=== PATIENT | male | born 1950 | race Caucasian/White ===

== ENCOUNTER → 2016-06-09 | Outpatient (REF) | payer MEDICARE, OTHER | END | disposition home or self-care (01) | LOC: M LAB REF 13:07 | DX: M54.5 Low back pain (principal); G89.29 Other chronic pain ==

== ENCOUNTER 2018-12-12 16:20 | Emergency (ER) | payer MEDICARE, OTHER ==
[~2018-12-12] VITALS: Ht 182.9 cm; Wt 89.8 kg
[2018-12-12] MEDS ORDERED: PRAV80TA2 PO (19:22)
[2018-12-12] MEDS ORDERED: ZOLP10TA2 PO (19:22)
[2018-12-12] MEDS ORDERED: LISI20TA20 PO (19:22)
[2018-12-12] MEDS ORDERED: ELIQ5TAB PO (19:22)
--- NOTE | 2018-12-12 19:26 | REP ---
REASON: Pain after trauma two weeks ago. FINDINGS: Three views of the shoulder were performed. The acromioclavicular and glenohumeral relationships are within normal limits. There is no acute fracture or destructive osseous lesion. Electronically Signed by Aayush Reddy DO 12/13/2018 11:24 A
[2018-12-12 20:04] VITALS: BP 145/79
[2018-12-12] MEDS ORDERED: NORC1TAB7 PO (20:04)
[2018-12-12] MEDS ORDERED: NORCO, ANEXSIA 5/325MG TABLET (HYDROcodone/ACETAMINOPHEN) PO ONE (20:15)
== END 2018-12-12 20:09 | disposition home or self-care (01) ==
LOC: M ED 16:20
DX: S46.001A Unspecified injury of muscle(s) and tendon(s) of the rotator cuff of right shoulder, initial encounter (principal); W17.89XA Other fall from one level to another, initial encounter; Y92.89 Other specified places as the place of occurrence of the external cause; I10 Essential (primary) hypertension; E78.00 Pure hypercholesterolemia, unspecified; Z79.899 Other long term (current) drug therapy; Z79.01 Long term (current) use of anticoagulants

== ENCOUNTER 2020-10-17 15:57 | Emergency (ER) | payer MEDICARE, OTHER ==
[~2020-10-17] VITALS: Ht 182.9 cm; Wt 88.6 kg
[~2020-10-17 15:57] MED LIST: ELIQ5TAB PO; LISI20TA20 PO; NORC1TAB7 PO; PRAV80TA2 PO; ZOLP10TA2 PO
[2020-10-17] MEDS ORDERED: LOSA100T50 (16:26)
[2020-10-17] MEDS ORDERED: ACET325C5 PO (16:26)
--- NOTE | 2020-10-17 16:47 | REP ---
INDICATION: CHEST PAIN. COMPARISON: 07/07/2006 the only prior FINDINGS: The technique utilized in obtaining the radiograph has magnified the cardiac silhouette and accentuated the interstitial markings. The superior mediastinal structures are midline. The cardiac silhouette is unremarkable in size, shape, and position. The diaphragmatic surfaces of the lungs are regular, and the costophrenic angles are clear. The pulmonary simmons are clear. The imaged osseous structures are intact. IMPRESSION: There is no acute cardiopulmonary disease. <Electronically signed by Aayush Reddy > 10/17/20 0774
[2020-10-17] MEDS ORDERED: MORPHINE 4 MG/ML 1ML VIAL/SYRINGE (J2270) IV ONE (17:15)
[2020-10-17 17:36] LABS: RSV AMPLIFICATION NEGATIVE (NEGATIVE)
[2020-10-17 18:01] LABS: BASO % 0.4 % (0.0-1.0); HEMATOCRIT 42.3 % (42.0-52.0); HEMOGLOBIN 15.2 g/dl (13.5-17.5); LYMPH # 0.6 10^3/uL (1.5-5.0); LYMPH % 12.2 % (24.0-44.0); MEAN CORPUSCULAR HEMOGLOBIN 34.8 pg (27.0-33.0); MEAN CORPUSCULAR HGB CONC 35.9 g/dl (32.0-36.5); MEAN CORPUSCULAR VOLUME 96.8 fl (80.0-96.0); MONO # 0.2 10^3/uL (0.0-0.8); MONO % 4.5 % (2.0-8.0); NEUTROPHILS # 3.7 10^3/uL (1.5-8.5); NEUTROPHILS % 82.5 % (36.0-66.0); PLATELET COUNT, AUTOMATED 123 10^3/uL (150-450); RED BLOOD COUNT 4.37 10^6/uL (4.30-6.10); WHITE BLOOD COUNT 4.5 10^3/uL (4.0-10.0)
[2020-10-17] MEDS ORDERED: ISOVUE-370 76% 100ML VIAL As Ordered ONE (18:07)
[2020-10-17 18:43] LABS: ALBUMIN 3.6 GM/DL (3.2-5.2); BILIRUBIN,DIRECT 0.1 MG/DL (0.0-0.2); BILIRUBIN,TOTAL 0.5 MG/DL (0.2-1.0); THYROID STIMULATING HORMONE 0.526 uIU/ML (0.358-3.740)
--- NOTE | 2020-10-17 19:09 | REPVR ---
PROCEDURE INFORMATION: Exam: CT Angiography Abdomen With Contrast Exam date and time: 10/17/2020 6:00 PM Age: 70 years old Clinical indication: Abdominal pain and other: Chest; Other: Severe; Additional info: Severe chest/abdominal pain; HX of aneurysm TECHNIQUE: Imaging protocol: Computed tomographic angiography images of the abdomen with intravenous contrast material. 3D rendering (Not supervised by radiologist): MIP and/or 3D reconstructed images were created by the technologist. Radiation optimization: All CT scans at this facility use at least one of these dose optimization techniques: automated exposure control; mA and/or kV adjustment per patient size (includes targeted exams where dose is matched to clinical indication); or iterative reconstruction. Contrast material: ISOVUE 370; Contrast volume: 100 ml; Contrast route: INTRAVENOUS (IV); COMPARISON: [facility] CHEST X-RAY 10/17/2020 4:31 PM FINDINGS: Aorta: Diffuse odzh-pb-ynfkurnc atherosclerotic changes in the abdominal aorta. No evidence of a dissection or aneurysm. Mild atherosclerotic changes demonstrated at the origin of the superior mesenteric artery without significant stenosis or poststenotic dilatation. Celiac trunk and mesenteric arteries: Mild atherosclerotic changes at the origin of the celiac artery without significant narrowing or poststenotic dilatation. Renal arteries: Mild atherosclerotic changes at the origin of the right renal artery and moderate atherosclerotic changes at the origin of the left renal artery without evidence of poststenotic dilatation. Liver: Small transient perfusion abnormality in the left lobe of the liver adjacent to the falciform ligament. Liver otherwise unremarkable. Gallbladder and bile ducts: Normal. No calcified stones. No ductal dilation. Pancreas: Normal. No ductal dilation. Spleen: Normal. No splenomegaly. Adrenals: Normal. No mass. Kidneys and ureters: Normal. No hydronephrosis. Perirenal inflammatory changes likely chronic. Stomach and bowel: Unremarkable. No obstruction. No mucosal thickening. Lymph nodes: Unremarkable. No enlarged lymph nodes. Intraperitoneal space: Unremarkable. No free air. No significant fluid collection. Bones/joints: Severe central spinal stenosis L3-L4 and L4-L5. Moderate to severe central spinal stenosis L5-S1. Soft tissues: Unremarkable. IMPRESSION: 1. Diffuse wzzr-ps-qydjgzei atherosclerotic changes in the abdominal aorta. No evidence of a dissection or aneurysm. 2. Mild atherosclerotic changes in the branch arteries of the abdominal aorta without poststenotic dilatation or significant stenosis. Electronically signed by: Bartolome Lilly On 10/17/2020 19:09:10 PM
--- NOTE | 2020-10-17 19:15 | REPVR ---
PROCEDURE INFORMATION: Exam: CTA Chest With Contrast Exam date and time: 10/17/2020 6:00 PM Age: 70 years old Clinical indication: Pain; Other: Chest and abdomen; Additional info: Severe chest/abdominal pain; HX of aneurysm TECHNIQUE: Imaging protocol: Computed tomographic angiography of the chest with contrast. 3D rendering (Not supervised by radiologist): MIP and/or 3D reconstructed images were created by the technologist. Radiation optimization: All CT scans at this facility use at least one of these dose optimization techniques: automated exposure control; mA and/or kV adjustment per patient size (includes targeted exams where dose is matched to clinical indication); or iterative reconstruction. Contrast material: ISOVUE 370; Contrast volume: 100 ml; Contrast route: INTRAVENOUS (IV); COMPARISON: [facility] CHEST X-RAY 10/17/2020 4:31 PM FINDINGS: Pulmonary arteries: There are no pulmonary emboli. Aorta: There is fusiform dilatation of the ascending thoracic aorta which measures 4 cm. maximally. There is no dissection or saccular component. Lungs: Mild bibasilar atelectasis. Fusiform shaped 5 mm noncalcified pulmonary parenchymal nodule abutting the minor fissure in the right upper lobe. There are several other less than 3 mm peripheral pulmonary parenchymal nodules demonstrated bilaterally. Pleural spaces: Unremarkable. No pneumothorax. No pleural effusion. Heart: There is mild atherosclerotic calcification of the coronary arteries. Lymph nodes: Multiple small mediastinal lymph nodes likely postinflammatory. Bones/joints: The spine demonstrates moderate degenerative changes. Age indeterminate compression deformity superior endplate of T7. Soft tissues: Unremarkable. IMPRESSION: 1. Fusiform shaped 5 mm noncalcified pulmonary parenchymal nodule abutting the minor fissure in the right upper lobe. There are several other less than 3 mm peripheral pulmonary parenchymal nodules demonstrated bilaterally. For patients at low risk (minimal or absent history of smoking and of other known risk factors), no routine follow-up is indicated. For patients at high risk (history of smoking or of other known risk factors), consider optional CT Chest at 12 months. (Reference: Mando) References: Mando Barcenas et al. Guidelines for Management of Incidental Pulmonary Nodules Detected on CT Images: From the Fleischner Society 2017. Radiology. 2017;284(1):228-243. 2. There is fusiform dilatation of the ascending thoracic aorta which measures 4 cm. maximally. There is no dissection or saccular component. 3. Age indeterminate compression deformity superior endplate of T7. 4. There are no pulmonary emboli. Electronically signed by: Bartolome Lilly On 10/17/2020 19:14:40 PM
[2020-10-17 20:22] VITALS: BP 150/90
--- NOTE | 2020-10-17 21:21 | ECGEPIP ---
[facility] - ED Test Date: 2020-10-17 Pat Name: RAVI OCONNOR Department: Room: - Gender: Male Opthalmic Tech: vc : 1950 Requested By: TERI CHONG Order Number: [id number] Reading MD: Kj Meredith Measurements Intervals [place] Rate: 82 P: AK: QRS: -19 QRSD: 116 T: 60 QT: 358 QTc: 418 Interpretive Statements Atrial fibrillation with a competing junctional pacemaker Low voltage QRS NO PRIORS FOR COMPARISON Electronically Signed on 10-17-2020 21:21:39 EDT by Kj Meredith
== END 2020-10-17 20:24 | disposition home or self-care (01) ==
LOC: M ED 15:57 → EDBD 15:57 → M ED 20:24
DX: R42 Dizziness and giddiness (principal); R06.02 Shortness of breath; R10.9 Unspecified abdominal pain; B34.8 Other viral infections of unspecified site; I10 Essential (primary) hypertension; I48.91 Unspecified atrial fibrillation; Z85.46 Personal history of malignant neoplasm of prostate; Z79.899 Other long term (current) drug therapy; Z79.01 Long term (current) use of anticoagulants; F12.20 Cannabis dependence, uncomplicated
CPT/HCPCS: 71045; 71275; 74175; 80047; 80076; 83690; 83880; 84443; 84484; 85025; 87631; 93005; 93041; 94760; 96374; 99285; J2270; Q9967

== ENCOUNTER → 2020-11-07 | Outpatient (REF) | payer MEDICARE, OTHER ==
[~2020-11-07] MED LIST changes: +ACET325C5 PO; +LOSA100T50
== END ==
LOC: M LAB REF 12:19
PROVIDERS: ATTEND Family Medicine
DX: I48.11 Longstanding persistent atrial fibrillation (principal)

== ENCOUNTER → 2020-12-20 | Outpatient (CLI) | payer MEDICARE, OTHER | LOC: M LABSMTC 11:41 | PROVIDERS: ATTEND Internal Medicine Cardiovascular Disease | DX: Z20.822 Contact with and (suspected) exposure to COVID-19 (principal) ==

== ENCOUNTER → 2021-02-21 | Outpatient (CLI) | payer MEDICARE, OTHER | LOC: M LABSMTC 10:48 | PROVIDERS: ATTEND Internal Medicine Cardiovascular Disease | DX: Z20.822 Contact with and (suspected) exposure to COVID-19 (principal) ==

== ENCOUNTER → 2022-02-03 | Outpatient (CLI) | payer MEDICARE ==
[~2022-02-03] MED LIST changes: +ISOVUE-370 76% 100ML VIAL As Ordered ONE; -LISI20TA20 PO; +LISI20TA37 PO; +LOSA100T45; -LOSA100T50
== END ==
LOC: M RAD 16:34
PROVIDERS: ATTEND Family Medicine
DX: R91.1 Solitary pulmonary nodule (principal)
CPT/HCPCS: 71275; Q9967

== ENCOUNTER → 2023-01-28 | Outpatient (CLI) | payer MEDICARE ==
[~2023-01-28] MED LIST changes: -ISOVUE-370 76% 100ML VIAL As Ordered ONE; -LOSA100T45; +LOSA100T46
== END ==
LOC: M WHC 12:01
PROVIDERS: ATTEND Family Medicine
DX: R10.31 Right lower quadrant pain (principal)

== ENCOUNTER → 2023-02-09 | Outpatient (CLI) | payer MEDICARE | LOC: M PLAIMG 07:42 | PROVIDERS: ATTEND Nurse Practitioner Family | DX: R91.8 Other nonspecific abnormal finding of lung field (principal) ==

== ENCOUNTER → 2023-02-18 | Outpatient (CLI) | payer MEDICARE ==
[~2023-02-18] MED LIST changes: +ISOVUE-370 76% 100ML VIAL As Ordered ONE
== END ==
LOC: M RAD 08:02
PROVIDERS: ATTEND Family Medicine
DX: I71.20 Thoracic aortic aneurysm, without rupture, unspecified (principal); R91.1 Solitary pulmonary nodule
CPT/HCPCS: 71275; Q9967

== ENCOUNTER → 2023-09-17 | Outpatient (CLI) | payer MEDICARE ==
[~2023-09-17] MED LIST changes: -ISOVUE-370 76% 100ML VIAL As Ordered ONE
[2023-09-17 14:08] LABS: RSV AMPLIFICATION NEGATIVE (NEGATIVE)
== END ==
LOC: M WUC 11:25
PROVIDERS: ATTEND Nurse Practitioner Family
DX: R06.02 Shortness of breath (principal); R05.9 Cough, unspecified

== ENCOUNTER → 2024-08-09 | Outpatient (CLI) | payer MEDICARE | LOC: M WUC 10:11 | PROVIDERS: ATTEND Physician Assistant | DX: R05.9 Cough, unspecified (principal); R06.02 Shortness of breath ==